=== PATIENT | male | born 1990 | race Caucasian/White ===

== ENCOUNTER 2016-11-03 09:35 | Emergency (ER) | payer SELFPAY ==
[~2016-11-03] VITALS: Ht 160 cm; Wt 79.9 kg
[~2016-11-03 09:35] MED LIST: NO HOME MEDS
[2016-11-03 09:38] VITALS: Ht 160 cm; Wt 79.9 kg
--- OUTSIDE RECORDS SUMMARY | 2016-11-03 09:39 | XMS REPORT ---
Author Author Kaitlynn Narvaez Organization [employer] Address Unknown Phone Unavailable Care Team Providers Care Counter Checker Name Role Phone Kaitlynn Narvaez CP Unavailable Allergies No Known Allergies Problems Problem Type Condition ICD-9 Code Onset Dates Condition Status Problem Depressive disorder, not elsewhere classified 311 Active Problem Generalized anxiety disorder 300.02 Active Problem Allergic rhinitis 477.9 Active Medications No Known Medications Results No Known Results Summary Purpose [employer] Submission
--- OUTSIDE RECORDS SUMMARY | 2016-11-03 09:39 | XMS REPORT | Continuity of Care Document ---
Author Author [facility] Organization [facility] Address Unknown Phone Unavailable Support Name Relationship Address Phone LISA LOPES MD Caregiver [address] [place] [address] [place] [phone] NEEL GONSALES Next Of Kin [address] [place] [address] Insurance Providers Payer Name Policy Number Subscriber Name Relationship Self Pay Sergio Dodge 17 Self Problems Medical Problems Problem Onset Date Status Sinusitis Unknown Active Sinusitis Unknown Active Medications Medication Dose Route Sig Days/Qty Instructions Order Date Discontinued Date Status Albuterol Sulfate 11/12/11 03/10/12 Discontinued Miscellaneous Information 03/10/12 10/10/13 Discontinued Aripiprazole 1 Tab PO DAILY 01/25/14 Active Zolpidem Tartrate 01/25/14 Active Social History Social History Problem Response Recorded Date/Time Smoking Status Smoker,current status unk 10/10/2013 10:28am Hx Alcohol Use Y " ALOT LATELY" 01/25/2014 9:53pm Query Response Start Date Stop Date Smoking Status Former smoker Hospital Discharge Instructions No hospital discharge instructions. Plan of Care No plan of care. Functional Status Query Response Date Recorded Physical Hygiene Self January 25, 2014 9:53pm Disabilities None January 25, 2014 9:53pm Devices Used Glasses January 25, 2014 9:53pm Dressing Self January 25, 2014 9:53pm Ambulation Self January 25, 2014 9:53pm Diet Self January 25, 2014 9:53pm Mental Status Alert Oriented January 25, 2014 9:53pm Disabilities None January 25, 2014 9:53pm Devices Used Glasses January 25, 2014 9:53pm Physical Hygiene Self January 25, 2014 9:53pm Dressing Self January 25, 2014 9:53pm Ambulation Self January 25, 2014 9:53pm Diet Self January 25, 2014 9:53pm Allergies, Adverse Reactions, Alerts Allergen Type Severity Reaction Status Last Updated Sulfa (Sulfonamide Antibiotics) Allergy Unknown Active 01/25/14 Codeine Allergy Unknown Active 01/25/14 Immunizations Name Given Type Hx Influenza Vaccination No Historical Hx Influenza Vaccination No Historical Vital Signs Acute Vital Signs Vital Response Date/Time Temperature (Fahrenheit) 97.6 deg F (96.8 - 99.1) Temperature (Calculated Celsius) 36.44553 degrees C (36.0 - 37.3) Pulse Rate (adult) 78 bpm (60 - 100) Respiratory Rate 16 breaths/min (10 - 20) O2 Sat by Pulse Oximetry 97 % (90 - 100) Blood Pressure 138/79 mm Hg Height 5 ft 3 in Weight 185 lb Body Mass Index 32.0 kg/m^2 Results Test Source Date Result Interp. Ref. Range Comments Acetaminophen Level March 10, 2012 9:30pm < 10 UG/ML L 10-30 TOXIC < 4 HR POST INGESTION: >150 MG/L;TOXIC <12 HR POST INGESTION: >50 MG/L Alanine Aminotransferase (ALT/SGPT) May 14, 2012 1:43am 52 U/L N 21 -72 Albumin May 14, 2012 1:43am 4.2 G/DL N 3.5-5.0 Albumin/Globulin Ratio May 14, 2012 1:43am 1.3 RATIO N 1.1-2.2 Alcohol, Quantitative March 10, 2012 9:30pm <10 MG/DL - Alkaline Phosphatase May 14, 2012 1:43am 83 U/L N 38-126 Amylase Level May 14, 2012 1:43am 105 U/L N 30-110 Anion Gap May 14, 2012 1:43am 12 MEQ/L N 5-15 Aspartate Amino Transf (AST/SGOT) May 14, 2012 1:43am 25 U/L N 17- 59 BUN/Creatinine Ratio May 14, 2012 1:43am 19 RATIO N 6-26 Basophils # (Auto) May 14, 2012 1:43am 0.1 T/MM3 N 0-0.2 Basophils (%) (Auto) May 14, 2012 1:43am 0.6 % N 0-2 Blood Urea Nitrogen May 14, 2012 1:43am 15.0 MG/DL N 9-20 Calcium Level May 14, 2012 1:43am 9.7 MG/DL N 8.4-10.2 Calculated Osmolality May 14, 2012 1:43am 276 MOSM/KG N 261-280 Carbon Dioxide Level May 14, 2012 1:43am 27 MEQ/L N 22-30 Chloride Level May 14, 2012 1:43am 104 MEQ/L N 98-107 Conjugated Bilirubin October 27, 2010 8:52pm 0.00 MG/DL N 0.00-0.30 Creatinine May 14, 2012 1:43am 0.8 MG/DL N 0.8-1.5 Eosinophils # (Auto) May 14, 2012 1:43am 0.5 T/MM3 N 0-0.5 Eosinophils (%) (Auto) May 14, 2012 1:43am 5.4 % H 0-4 Globulin May 14, 2012 1:43am 3.2 G/DL N 2.4-3.6 Glucose Level May 14, 2012 1:43am 96 MG/DL N 75-110 Hematocrit May 14, 2012 1:43am 43.6 % N 41-53 Hemoglobin May 14, 2012 1:43am 15.2 GM/DL N 13.5-17.5 Influenza Type A Antigen May 14, 2012 1:39am Negative - Negative for Flu A protein antigen. Assay sensitivity isbetween 65-83%. A negative result does not exclude influenza virus infection. "Influenza FA" may be ordered if clinical presentation warrants confirmatory testing. Influenza Type B Antigen May 14, 2012 1:39am Negative - Negative for Flu B protein antigen. Assay sensitivity isbetween 65-83%. A negative result does not exclude influenza virus infection. "Influenza FA" may be ordered if clinical presentation warrants confirmatory testing. Lipase May 14, 2012 1:43am 62 U/L N 23-300 Lymphocytes # (Auto) May 14, 2012 1:43am 3.2 T/MM3 N 1-4.8 Lymphocytes (%) (Auto) May 14, 2012 1:43am 35.0 % N 23-45 Magnesium Level October 27, 2010 8:52pm 2.1 MG/DL N 1.6-2.3 Mean Corpuscular Hemoglobin May 14, 2012 1:43am 30.2 UUG N 26-34 Mean Corpuscular Hemoglobin Concent May 14, 2012 1:43am 34.9 GM/DL N 31-37 Mean Corpuscular Volume May 14, 2012 1:43am 86.5 UM3 N 80-100 Mean Platelet Volume May 14, 2012 1:43am 10.0 UM3 N 9.4-12.4 Monocytes # (Auto) May 14, 2012 1:43am 1.0 T/MM3 H 0-0.8 Monocytes (%) (Auto) May 14, 2012 1:43am 10.7 % H 0-9.0 Monoscreen May 14, 2012 1:43am Negative - Neutrophils # (Auto) May 14, 2012 1:43am 4.4 T/MM3 N 1.8-7.7 Neutrophils (%) (Auto) May 14, 2012 1:43am 48.2 % N 33-66 Phosphorus Level October 27, 2010 8:52pm 3.2 MG/DL N 2.5-4.5 Platelet Count May 14, 2012 1:43am 303 T/MM3 N 130-400 Potassium Level May 14, 2012 1:43am 3.8 MEQ/L N 3.6-5 RDW Standard Deviation May 14, 2012 1:43am 39.6 FL N 36.9-50.2 Red Blood Count May 14, 2012 1:43am 5.04 M/MM3 N 4.50-5.90 Salicylates Level March 10, 2012 9:30pm < 1.0 MG/DL L 2-20 Sodium Level May 14, 2012 1:43am 143 MEQ/L N 134-144 Thyroid Stimulating Hormone (TSH) March 10, 2012 9:30pm 1.77 MIU/L N 0.47-4.68 Total Bilirubin May 14, 2012 1:43am 0.40 MG/DL N 0.20-1.30 Total Protein May 14, 2012 1:43am 7.4 G/DL N 6.3-8.2 Unconjugated Bilirubin October 27, 2010 8:52pm 0.30 MG/DL N 0.00-1.10 Urine Amphetamines Screen March 10, 2012 10:20pm Negative NG/ML - Urine Barbiturates Screen March 10, 2012 10:20pm Negative NG/ML - Urine Benzodiazepines Screen March 10, 2012 10:20pm Negative NG/ML - Urine Bilirubin October 27, 2010 8:44pm Negative - Has specimen been collected/obtained? Y Urine Blood October 27, 2010 8:44pm Negative - Has specimen been collected/obtained? Y Urine Cocaine Screen March 10, 2012 10:20pm Negative NG/ML - Urine Collection Type October 27, 2010 8:44pm Voided - Has specimen been collected/obtained? Y Urine Color October 27, 2010 8:44pm Yellow - Has specimen been collected/ obtained? Y Urine Drug Screen Confirmation March 10, 2012 10:52pm Sent out - Urine Glucose (UA) October 27, 2010 8:44pm Negative - Has specimen been collected/obtained? Y Urine Ketones October 27, 2010 8:44pm Negative - Has specimen been collected/obtained? Y Urine Leukocyte Esterase October 27, 2010 8:44pm Negative - Has specimen been collected/obtained? Y Urine Methamphetamines Screen March 10, 2012 10:20pm Positive NG/ML - Urine Nitrite October 27, 2010 8:44pm Negative - Has specimen been collected/obtained? Y Urine Opiates Screen March 10, 2012 10:20pm Negative NG/ML - Urine Phencyclidine Screen March 10, 2012 10:20pm Negative NG/ML - Urine Protein October 27, 2010 8:44pm Trace H - Has specimen been collected /obtained? Y Urine Specific [place] October 27, 2010 8:44pm 1.015 - Has specimen been collected/obtained? Y Urine Tricyclic Antidepressants March 10, 2012 10:20pm Negative NG/ML - Urine Turbidity October 27, 2010 8:44pm Clear - Has specimen been collected/obtained? Y Urine Urobilinogen October 27, 2010 8:44pm Normal EU/DL - Has specimen been collected/obtained? Y Urine pH October 27, 2010 8:44pm 6.5 - Has specimen been collected/ obtained? Y White Blood Count May 14, 2012 1:43am 9.0 T/MM3 N 4.5-11.0 Lab Scanned Report March 16, 2012 9:44am [facility] [id number] - Urine Methadone Screen March 10, 2012 10:20pm Negative NG/ML - Urine Cannabinoids Screen March 10, 2012 10:20pm Positive NG/ML - Glomerular Filtration Rate Calc May 14, 2012 1:43am 120 - Immature Granulocyte # (Auto) May 14, 2012 1:43am 0.01 T/MM3 N 0.00 -0.03 Immature Granulocyte % (Auto) May 14, 2012 1:43am 0.1 % N 0.0-0.5 Urine Acetaminophen Screen March 10, 2012 10:20pm Positive NG/ML - Urine Microscopic Not Indicated October 27, 2010 8:44pm Not indicated - Has specimen been collected/obtained? Y Procedures No known history of procedures. Encounters Encounter Location Date/Time Departed Emergency Room [facility] 01/25/14 9:48pm Recent Diagnosis
--- OUTSIDE RECORDS SUMMARY | 2016-11-03 09:39 | XMS REPORT ---
Author Author Lex Holland Organization [employer] Address Unknown Phone Unavailable Care Team Providers Care Research Geologist Name Role Phone Lex Holland CP Unavailable Allergies No Known Allergies Problems Problem Type Condition Code Onset Dates Condition Status Problem Depressive disorder, not elsewhere classified 311 Active Problem Generalized anxiety disorder 300.02 Active Problem Allergic rhinitis 477.9 Active Medications No Known Medications Results No Known Results Summary Purpose [employer] Submission
--- OUTSIDE RECORDS SUMMARY | 2016-11-03 09:39 | XMS REPORT ---
Author Author Lex Holland Organization [employer] Address Unknown Phone Unavailable Care Team Providers Care Drilling Rig Operator Name Role Phone Lex Holland CP Unavailable Allergies, Adverse Reactions, Alerts Substance Reaction Event Type Sulfa Info Not Available Drug Allergy Codeine Sulfate Info Not Available Drug Allergy Problems Problem Type Condition ICD-9 Code Onset Dates Condition Status Problem Depressive disorder, not elsewhere classified 311 Active Problem Generalized anxiety disorder 300.02 Active Problem Allergic rhinitis 477.9 Active Assessment Allergic rhinitis 477.9 Active Assessment Acute pharyngitis 462 Active Assessment Chronic tonsillitis 474.00 Active Medications Medication Code System Code Instructions Start Date End Date Status Dosage Amoxicillin [facility] [address]-92 875 MG Orally Twice a day August 10, 2014 August 20, 2014 1 tablet Procedures Procedure Coding System Code Date COMPLETE CBC W/AUTO DIFF WBC CPT-4 52321 August 10, 2014 SED RATE CPT-4 34466 August 10, [address]ID [address]REP, IN HOUSE CPT-4 64942 August 10, 2014 UPPER RESPIRATORY CULTURE CPT-4 94773 August 10, 2014 OFFICE VISIT, EST-MOD. COMPLEXITY (25 MIN) CPT-4 45445 August 10, 2014 Vital Signs Date/Time: August 10, 2014 Height 65 in Weight 171 lbs Temperature 98.7 F Blood Pressure Diastolic 60 mm Hg Blood Pressure Systolic 102 mm Hg Cardiac Monitoring Heart Rate 88 /min BMI 28.45 Index Results No Known Results Summary Purpose [employer]Works Submission
--- OUTSIDE RECORDS SUMMARY | 2016-11-03 09:39 | XMS REPORT ---
Author Author Kaitlynn Narvaez [facility] [employer] Address Unknown Phone Unavailable Care Team Providers Care Component Engineer Name Role Phone Kaitlynn Narvaez CP Unavailable Allergies No Known Allergies Problems Problem Type Condition ICD-9 Code Onset Dates Condition Status Problem Generalized anxiety disorder 300.02 Active Problem Depressive disorder, not elsewhere classified 311 Active Medications No Known Medications Vital Signs Date/Time: Mar 21, 2013 Height 65 inches Weight 172.4 lbs Temperature 98.7 F Blood Pressure Diastolic 60 mm Hg Blood Pressure Systolic 110 mm Hg Cardiac Monitoring Heart Rate 72 Beats per Minute BMI 28.69 Index Respiratory Rate 16 per Minute Results No Known Results Summary Purpose [employer]ClinicalWorks Submission
--- OUTSIDE RECORDS SUMMARY | 2016-11-03 09:39 | XMS REPORT ---
Author Author Lex Holland Organization [employer] Address Unknown Phone Unavailable Care Team Providers Care Retirement Benefits Specialist Name Role Phone Lex Holland CP Unavailable Allergies No Known Allergies Problems Problem Type Condition Code Onset Dates Condition Status Problem Depressive disorder, not elsewhere classified 311 Active Problem Generalized anxiety disorder 300.02 Active Problem Allergic rhinitis 477.9 Active Medications Medication Code System Code Instructions Start Date End Date Status Dosage Tessalon Perles [facility] [address]-58 100 MG Orally Three times a day as needed for congestion August 31, 2014 September 28, 2014 1 capsule as needed Amoxicillin [facility] [address]-39 875 MG Orally Twice a day August 31, 2014 September 10, 2014 1 tablet Flonase [facility] [address]-02 50 MCG/ACT Nasally Once a day August 31, 2014 1 spray in each nostril PredniSONE [facility] [address]-18 10 MG Orally as directed August 31, 2014 September 15, 2014 6 tabs daily x3 days, then 4 tabs daily x6 days, then 2 tabs daily x3 days, then 1 tab daily x3 days, then stop Results No Known Results Summary Purpose [employer]Works Submission
--- OUTSIDE RECORDS SUMMARY | 2016-11-03 09:39 | XMS REPORT ---
Author Author Lex Holland Organization [employer] Address Unknown Phone Unavailable Care Team Providers Care Therapy Coordinator Name Role Phone Lex Holland CP Unavailable Allergies, Adverse Reactions, Alerts Substance Reaction Event Type Sulfa Info Not Available Drug Allergy Codeine Sulfate Info Not Available Drug Allergy Problems Problem Type Condition ICD-9 Code Onset Dates Condition Status Problem Depressive disorder, not elsewhere classified 311 Active Problem Generalized anxiety disorder 300.02 Active Problem Allergic rhinitis 477.9 Active Assessment Unspecified peripheral vertigo 386.10 Active Assessment Acute maxillary sinusitis 461.0 Active Assessment Keratitis or keratoconjunctivitis in exanthema 370.44 Active Assessment Allergic rhinitis 477.9 Active Medications Medication Code System Code Instructions Start Date End Date Status Dosage Amoxicillin [facility] [address]-69 875 MG Orally Twice a day August 31, 2014 September 10, 2014 1 tablet Tessalon Perles [facility] [address]-92 100 MG Orally Three times a day as needed for congestion August 31, 2014 September 28, 2014 1 capsule as needed PredniSONE [facility] [address]-19 10 MG Orally as directed August 31, 2014 September 15, 2014 6 tabs daily x3 days, then 4 tabs daily x6 days, then 2 tabs daily x3 days, then 1 tab daily x3 days, then stop Flonase [facility] [address]-16 50 MCG/ACT Nasally Once a day August 31, 2014 1 spray in each nostril Procedures Procedure Coding System Code Date OFFICE VISIT, EST-MOD. COMPLEXITY (25 MIN) CPT-4 59473 August 31, 2014 Vital Signs Date/Time: August 31, 2014 Height 65 in Weight 173 lbs Temperature 98.0 F Blood Pressure Diastolic 78 mm Hg Blood Pressure Systolic 120 mm Hg Cardiac Monitoring Heart Rate 68 /min BMI 28.79 Index Respiratory Rate 16 /min Results No Known Results Summary Purpose [employer]ClinicalWorks Submission
[2016-11-03] MEDS ORDERED: NO ROUTINE MEDS (09:42)
--- NOTE | 2016-11-03 09:45 | NUR ---
PROVIDER MAY TO SEE PT
--- NOTE | 2016-11-03 09:53 | ERPDOC ---
Departure Disposition Decision Date: November 03, 2016 Disposition Decision Time: 09:53 Disposition: 01 DISCHARGED HOME, SELF-CARE Impression Impression Impression: Primary Impression: Tick bite of groin Encounter type: initial encounter Qualified Codes: S30.861A - Insect bite ( nonvenomous) of abdominal wall, initial encounter; W57.XXXA - Bitten or stung by nonvenomous insect and other nonvenomous arthropods, initial encounter Severity: Mild Condition: Improved Seen By: Physician only Referrals: YOUR PHYSICIAN 1 Week Patient Instructions: Tick Bite (ED) Problems/Meds/Labs Reviewed?: Yes Medications reviewed and manag: Yes Additional Instructions: You have had a tick bite. We successfully removed the tick. Occasionally, your body will react to tick parts, if they remain in the skin. Use ibuprofen/tylenol /ice as needed for pain/swelling. Follow up with your doctor, especially if you have fevers or a rash. Follow up care ordered?: Yes Mental Status: Alert, Oriented HPI - Skin General General Chief Complaint: Skin Injury Stated Complaint: TICK BITE ON GENITAL AREA Time Seen by Provider: 09:49 HPI - Skin General Allergies: Coded Allergies: Sulfa (Sulfonamide Antibiotics) (Verified Allergy, Unknown, 07/18/15) codeine (Verified Allergy, Unknown, 07/18/15) Past History Past Medical History Pt denies signifigant PMH Hx Echocardiogram: No Respiratory: asthma Neurological: headaches Surgical History General: other Family History Family PMH: FOUND: asthma Vaccines Hx Influenza Vaccination: No Hx Pneumococcal Vaccination: No Social History Sexuality: female partner Physical Exam General Vitals and Pain First Documented Vital Signs Date Time Temp Pulse Resp B/P Pulse Ox O2 Delivery O2 Flow Rate FiO2 11/03/16 09:38 97.8 59 18 136/88 97 Room Air Weight: Kilograms: 79.900 Height (feet): 5 Height (inches): 3.00 Triage Pain Scale: Progress Progress Progress 26yo man with ixodes tick embeded in the shaft of his penis. Successfully removed with slow, gentle traction. Excellent RTC precautions given and instructions for f/u given. CELINA ALAN DO November 03, 2016 09:53
--- OUTSIDE RECORDS SUMMARY | 2016-11-03 09:58 | XMS REPORT | Continuity of Care Document ---
Author Author [facility] Organization [facility] Address Unknown Phone Unavailable Support Name Relationship Address Phone LISA LOPES MD Caregiver [address] [place] [address] [place] [phone] NEEL GONSALES Next Of Kin [address] [place] [address] Insurance Providers Payer Name Policy Number Subscriber [...] F (96.8 - 99.1) Temperature (Calculated Celsius) 36.20092 degrees C (36.0 - 37.3) Pulse Rate [...] specimen been collected /obtained? Y Urine Specific [place] October 27, 2010 8:44pm 1.015 - Has [...] Report March 16, 2012 9:44am [facility] [id number] - Urine Methadone Screen March 10, 2012 [...] Encounters Encounter Location Date/Time Departed Emergency Room [facility] 01/25/14 9:48pm Recent Diagnosis
[2016-11-03 10:00] VITALS: BP 136/88; PULSE 59; RESP 18; TEMP 97.8; O2SAT 97
--- NOTE | 2016-11-03 10:00 | NUR ---
DISMISSAL DISMISSAL INSTRUCTIONS TO PT WITHOUT FURTHER QUESTIONS. PT LEFT DEPARTMENT AMBALATORY
== END 2016-11-03 10:00 | disposition home or self-care (01) ==
LOC: ED 09:35
DX: S30.862A Insect bite (nonvenomous) of penis, initial encounter (principal); W57.XXXA Bitten or stung by nonvenomous insect and other nonvenomous arthropods, initial encounter; Y93.89 Activity, other specified; Y92.833 Campsite as the place of occurrence of the external cause; Y99.8 Other external cause status